=== PATIENT | male | born 1990 | race American Indian/Alaskan Native ===

== ENCOUNTER 2016-11-15 10:34 | Emergency (ER) | payer SELFPAY ==
[2016-11-15 11:40] LABS: Basophils % (Auto) 0.4 % (0.0-1.8); Eosinophils % (Auto) 0.6 % (0.0-4.3); Hemoglobin 13.4 gm/dl (11.8-15.2); Mean Corpuscular HGB Conc 34 % (32-34); Mean Corpuscular Hemoglobin 34 pg (28-32); Mean Corpuscular Volume 98 fl (84-94); Platelet Count 159 K/mm3 (140-440); Red Blood Count 3.96 M/mm3 (3.65-5.03); White Blood Count 4.1 K/mm3 (4.5-11.0)
[2016-11-15] MEDS ORDERED: KEPPRA 1,000 MG/NS 0.75% 100ML 1,000 MG/100 ML BAG IV ONE (11:59)
[2016-11-15 12:00] LABS: Alanine Aminotransferase 9 units/L (7-56); Albumin 4.2 g/dL (3.9-5); Albumin/Globulin Ratio 1.8 %; Alkaline Phosphatase 52 units/L (35-129); Anion Gap 17 mmol/L; BUN/Creatinine Ratio 12.72; Blood Urea Nitrogen 14 mg/dL (9-20); Calcium 9.2 mg/dL (8.4-10.2); Carbon Dioxide 25 mmol/L (22-30); Chloride 103.5 mmol/L (98-107); Glucose 80 mg/dL (75-100); Potassium 3.8 mmol/L (3.6-5.0); Sodium 142 mmol/L (137-145); Total Protein 6.6 g/dL (6.3-8.2)
--- NOTE | 2016-11-15 13:51 | Emergency Department Report ---
ED Seizure HPI - General Chief Complaint: Seizure Stated Complaint: SEIZURE Time Seen by Provider: 11/15/16 11:56 Source: EMS Mode of arrival: Stretcher Limitations: No Limitations - History of Present Illness Initial Comments: 26 yo male with a past medical history of seizures and kidney resection presents to Hospital status post seizure. Apparently patient had a seizure for 1 minute (witnessed by uncle). Pt was postictal upon EMS arrival but patient was A and 0 4 and able to ambulate when EMS brought the patient to the hospital. Initially patient was tachycardic and hypertensive upon EMS arrival but that has improved spontaneously. Patient states he suffered a mild tongue abrasion, no urinary incontinence, and has some moderate global headache was typical of a postseizure headache. Patient's been noncompliant with his seizure medication for greater than 4 months. Last medication he took with Keppra 500 twice a day. - Related Data Previous Rx's Medication Instructions Recorded Last Taken Type levETIRAcetam [Keppra TAB] 500 mg PO BID #60 tablet 11/15/16 Unknown Rx Allergies Allergy/AdvReac Type Severity Reaction Status Date / Time No Known Allergies Allergy Verified 07/12/15 19:56 ED Review of Systems ROS: Stated complaint: SEIZURE Other details as noted in HPI Comment: All other systems reviewed and negative Other: Constitutional: No fevers chills Eyes: No eye pain visual changes ENT: Tongue abrasion Neck: Denies pain Respiratory: Denies cough wheezing shortness of breath Cardiovascular: Denies chest pain, palpitations, syncope GI: Denies abdominal pain, nausea, vomiting : Denies dysuria Musculoskeletal: Denies back pain Skin: Denies rash, lesions, erythema Neurologic: Positive headache, no focal weakness or numbness Psychiatric: Denies suicidal ideation, hallucinations Hematological/lymphatic: Denies easy bruising, lymphadenopathy ED Past Medical Hx - Past Medical History Previous Medical History?: Yes Additional medical history: Epilepsy - Surgical History Past Surgical History?: Yes Additional Surgical History: Kidney removal - Social History Smoking Status: Never Smoker Substance Use Type: None - Medications Home Medications: Home Medications Medication Instructions Recorded Confirmed Last Taken Type levETIRAcetam [Keppra TAB] 500 mg PO BID #60 tablet 11/15/16 Unknown Rx ED Physical Exam - General Limitations: No Limitations - Other Other exam information: General: No limitations, patient is alert in no acute distress Head exam: Atraumatic, normocephalic Eyes exam: Normal appearance, pupils equal reactive to light, extraocular movements intact ENT: Moist mucous membrane, minimal superficial tongue abrasion to right lateral tongue Neck exam: Normal inspection, full range of motion, no meningismus nontender Respiratory exam: Clear to auscultation bilateral, no wheezes, rales, crackles Cardiovascular: Normal rate and rhythm, normal heart sounds Abdomen: Soft, nondistended, and nontender, with normal bowel sounds, no rebound, or guarding Extremity: Full range of motion normal inspection no deformity Back: Normal Inspection, full range of motion, no tenderness Neurologic: Alert, oriented x3, cranial nerves intact, no motor or sensory deficit Psychiatric: normal affect, normal mood Skin: Warm, dry, intact ED Course Vital Signs 11/15/16 11/15/16 11/15/16 10:51 10:55 10:56 Temperature 98.2 F Pulse Rate 87 80 Respiratory 19 17 18 Rate Blood Pressure 117/68 O2 Sat by Pulse 95 Oximetry 11/15/16 11/15/16 11/15/16 11:00 11:05 11:11 Temperature Pulse Rate 77 79 74 Respiratory 16 16 17 Rate Blood Pressure 109/67 109/67 109/67 O2 Sat by Pulse 94 94 95 Oximetry - Reevaluation(s) Reevaluation #1: 11/15/16 13:51 Patient Keppra 1 g, no further seizure activity ED Medical Decision Making - Lab Data Result diagrams: 11/15/16 11:29 11/15/16 11:29 Lab Results 11/15/16 11/15/16 Range/Units 11:29 11:29 WBC 4.1 L (4.5-11.0) K/mm3 RBC 3.96 (3.65-5.03) M/mm3 Hgb 13.4 (11.8-15.2) gm/dl Hct 39.0 (35.5-45.6) % MCV 98 H (84-94) fl MCH 34 H (28-32) pg MCHC 34 (32-34) % RDW 12.0 L (13.2-15.2) % Plt Count 159 (140-440) K/mm3 Lymph % (Auto) 20.7 (13.4-35.0) % [place] % (Auto) 9.3 H (0.0-7.3) % Eos % (Auto) 0.6 (0.0-4.3) % Baso % (Auto) 0.4 (0.0-1.8) % Lymph # 0.8 L (1.2-5.4) K/mm3 [place] # 0.4 (0.0-0.8) K/mm3 Eos # 0.0 (0.0-0.4) K/mm3 Baso # 0.0 (0.0-0.1) K/mm3 Seg Neutrophils % 69.0 (40.0-70.0) % Seg Neutrophils # 2.8 (1.8-7.7) K/mm3 Sodium 142 (137-145) mmol/L Potassium 3.8 (3.6-5.0) mmol/L Chloride 103.5 (98-107) mmol/L Carbon Dioxide 25 (22-30) mmol/L Anion Gap 17 mmol/L BUN 14 (9-20) mg/dL Creatinine 1.1 (0.8-1.5) mg/dL Estimated GFR > 60 ml/min BUN/Creatinine Ratio 12.72 % Glucose 80 (75-100) mg/dL Calcium 9.2 (8.4-10.2) mg/dL Total Bilirubin 0.60 (0.1-1.2) mg/dL AST 16 (5-40) units/L ALT 9 (7-56) units/L Alkaline Phosphatase 52 (35-129) units/L Total Protein 6.6 (6.3-8.2) g/dL Albumin 4.2 (3.9-5) g/dL Albumin/Globulin Ratio 1.8 % - Medical Decision Making Plan to discharge patient home. Seizures likely secondary to medication noncompliance. Refill of medication will be provided - Differential Diagnosis seizure, medication noncompliance, electrolyte adenopathy Critical Care Time: No Critical care attestation.: If time is entered above; I have spent that time in minutes in the direct care of this critically ill patient, excluding procedure time. ED Disposition Clinical Impression: Seizure, Noncompliance with medication regimen Disposition: TO HOME OR SELFCARE Is pt being admited?: No Does the pt Need Aspirin: No Condition: Stable Instructions: Epilepsy (ED) Additional Instructions: Take the medication as prescribed. Use the discount coupon card provided to make your medication more affordable. Return if symptoms worsen. Follow-up with neurology Prescriptions: levETIRAcetam [Keppra TAB] 500 mg PO BID #60 tablet Referrals: ERMIAS WATSON MD [Staff Physician] - 3-5 Days (Neurologist) TONY FRIEDMAN MD [Staff Physician] - 3-5 Days (Neurologist) [facility] [Provider Group] - 3-5 Days (Primary care clinic) Time of Disposition: 13:53
[2016-11-15 14:35] VITALS: BP 105/63
== END 2016-11-15 14:36 | disposition home or self-care (01) ==
LOC: ED 10:34
DX: R56.9 Unspecified convulsions (principal); Z91.14 Patient's other noncompliance with medication regimen; X58.XXXA Exposure to other specified factors, initial encounter; Y93.9 Activity, unspecified; Y92.9 Unspecified place or not applicable; Y99.9 Unspecified external cause status
CPT/HCPCS: 36415; 80053; 85025; 96365; 96366; 99284; J1953

== ENCOUNTER 2018-04-09 09:32 | Emergency (ER) | payer SELFPAY ==
[2018-04-09 10:27] LABS: Hematocrit 43.7 % (35.5-45.6); Hemoglobin 14.7 gm/dl (11.8-15.2); Mean Corpuscular HGB Conc 34 % (32-34); Mean Corpuscular Volume 101 fl (84-94); Platelet Count 165 K/mm3 (140-440); Red Blood Count 4.32 M/mm3 (3.65-5.03); Red Cell Distribution Width 12.5 % (13.2-15.2)
[2018-04-09 10:46] LABS: BUN/Creatinine Ratio 11; Blood Urea Nitrogen 12 mg/dL (9-20); Calcium 9.4 mg/dL (8.4-10.2); Hemolysis Index 47
[2018-04-09] MEDS ORDERED: TORADOL IV ONE (10:59)
[2018-04-09] MEDS ORDERED: KEPPRA 1,000 MG/NS 0.75% 100ML 1,000 MG/100 ML BAG IV ONE (10:59)
--- NOTE | 2018-04-09 10:59 | Emergency Department Report ---
ED Seizure HPI - General Chief Complaint: Seizure Stated Complaint: SEIZURES Time Seen by Provider: 04/09/18 10:04 Source: patient, EMS (ems notes not available at time of chart dictation), RN notes reviewed, old records reviewed Mode of arrival: Stretcher Limitations: No Limitations - History of Present Illness Initial Comments: This is a 27-year-old gentleman who is not known to this provider previously. He reports a history of epilepsy, seizures, and reports medication noncompliance. Patient in the past has been on Keppra, 500 mg, twice daily. Reports noncompliance with medications secondary to physical issues. Last had a seizure 6 months ago. Patient reports that he was at home, and bed, and had a seizure. He did not fall or hit his head. He reports that his uncle, who was at the house, indicated that there was no trauma. He complains of a mild headache. Otherwise, he denies complaints. He specifically denies neck pain, sore throat, chest pain, abdominal pain, urinary symptoms, vomiting. His headache is throbbing, not sudden or thunderclap in nature, not maximal in intensity, is not the most intense headache of his life. MD Complaint: seizure -: Sudden Description of Episode: loss of consciousness, tonic-clonic movement Witnessed:: Yes Trauma: No Seizure History: known seizure disorder, history of non-compliance Place: home Possible Precipitating Event: other (medication noncompliance) Associated Symptoms: other (headaches, otherwise, denies other symptoms) - Related Data Previous Rx's Medication Instructions Recorded Last Taken Type levETIRAcetam [Keppra TAB] 500 mg PO BID #60 tablet 04/09/18 Unknown Rx Allergies Allergy/AdvReac Type Severity Reaction Status Date / Time No Known Allergies Allergy Verified 07/12/15 19:56 ED Review of Systems ROS: Stated complaint: SEIZURES Other details as noted in HPI Constitutional: malaise. denies: fever Eyes: denies: eye discharge, vision change ENT: denies: epistaxis Respiratory: denies: cough Cardiovascular: denies: chest pain Gastrointestinal: denies: abdominal pain, nausea, vomiting Genitourinary: denies: urgency, dysuria Musculoskeletal: denies: back pain Skin: denies: lesions Neurological: headache. denies: weakness Psychiatric: denies: anxiety ED Past Medical Hx - Past Medical History Previous Medical History?: Yes Hx Seizures: Yes Additional medical history: Epilepsy - Surgical History Past Surgical History?: Yes Additional Surgical History: Kidney removal - Social History Smoking Status: Current Every Day Smoker Substance Use Type: Alcohol, Marijuana - Medications Home Medications: Home Medications Medication Instructions Recorded Confirmed Last Taken Type levETIRAcetam [Keppra TAB] 500 mg PO BID #60 tablet 04/09/18 Unknown Rx ED Physical Exam - General Limitations: No Limitations General appearance: alert, in no apparent distress - Head Head exam: Present: atraumatic, normocephalic - Eye Eye exam: Present: normal appearance, PERRL, EOMI, other (visual acuity intact to finger counting, color perception, reading at a close distance). Absent: nystagmus - ENT ENT exam: Present: normal exam, normal orophraynx, mucous membranes moist, normal external ear exam - Neck Neck exam: Present: normal inspection, full ROM. Absent: tenderness, meningismus - Respiratory Respiratory exam: Present: normal lung sounds bilaterally. Absent: respiratory distress - Cardiovascular Cardiovascular Exam: Present: regular rate, normal rhythm, normal heart sounds. Absent: bradycardia, tachycardia, irregular rhythm, systolic murmur, diastolic murmur, rubs, gallop - GI/Abdominal GI/Abdominal exam: Present: soft. Absent: distended, tenderness, guarding, r ebound, rigid, pulsatile mass - Rectal Rectal exam: Present: deferred - Extremities Exam Extremities exam: Present: normal inspection, full ROM, other (2+ pulses noted in the bilateral upper, lower extremities. Compartments soft. No long bony tenderness. The pelvis is stable.). Absent: pedal edema, joint swelling, calf tenderness - Back Exam Back exam: Present: normal inspection, full ROM. Absent: tenderness, CVA tenderness (R), paraspinal tenderness, vertebral tenderness - Neurological Exam Neurological exam: Present: alert, oriented X3, CN II-XII intact, normal gait, other (Extraocular movements intact. Tongue midline. No facial droop. Facial sensation intact to light touch in the V1, V2, V3 distribution bilaterally. 5 and 5 strength in 4 extremities.. Sensation is intact to light touch in 4 extremities.). Absent: motor sensory deficit - Psychiatric Psychiatric exam: Present: anxious - Skin Skin exam: Present: warm, dry, intact, normal color. Absent: rash ED Course Vital Signs 04/09/18 04/09/18 04/09/18 09:45 10:00 10:16 Temperature 98.0 F Pulse Rate 108 H 84 91 H Respiratory 15 16 21 Rate Blood Pressure 135/71 125/83 128/81 Blood Pressure 135/71 [Left] O2 Sat by Pulse 98 Oximetry 04/09/18 04/09/18 04/09/18 10:30 10:46 11:40 Temperature Pulse Rate 81 83 Respiratory 16 13 15 Rate Blood Pressure 122/76 111/70 Blood Pressure [Left] O2 Sat by Pulse 99 Oximetry ED Medical Decision Making - Lab Data Result diagrams: 04/09/18 10:11 04/09/18 10:11 Vital Signs 04/09/18 04/09/18 04/09/18 09:45 10:00 10:16 Temperature 98.0 F Pulse Rate 108 H 84 91 H Respiratory 15 16 21 Rate Blood Pressure 135/71 125/83 128/81 Blood Pressure 135/71 [Left] O2 Sat by Pulse 98 Oximetry 04/09/18 04/09/18 04/09/18 10:30 10:46 11:40 Temperature Pulse Rate 81 83 Respiratory 16 13 15 Rate Blood Pressure 122/76 111/70 Blood Pressure [Left] O2 Sat by Pulse 99 Oximetry Lab Results 04/09/18 04/09/18 04/09/18 Range/Units 10:11 10:11 10:14 WBC 5.3 (4.5-11.0) K/mm3 RBC 4.32 (3.65-5.03) M/mm3 Hgb 14.7 (11.8-15.2) gm/dl Hct 43.7 (35.5-45.6) % MCV 101 H (84-94) fl MCH 34 H (28-32) pg MCHC 34 (32-34) % RDW 12.5 L (13.2-15.2) % Plt Count 165 (140-440) K/mm3 Sodium 138 (137-145) mmol/L Potassium 4.8 (3.6-5.0) mmol/L Chloride 101.6 (98-107) mmol/L Carbon Dioxide 19 L (22-30) mmol/L Anion Gap 22 mmol/L BUN 12 (9-20) mg/dL Creatinine 1.1 (0.8-1.5) mg/dL Estimated GFR > 60 ml/min BUN/Creatinine Ratio 11 % Glucose 81 (75-100) mg/dL POC Glucose 69 L (70-105) Calcium 9.4 (8.4-10.2) mg/dL 04/09/18 Range/Units 11:45 WBC (4.5-11.0) K/mm3 RBC (3.65-5.03) M/mm3 Hgb (11.8-15.2) gm/dl Hct (35.5-45.6) % MCV (84-94) fl MCH (28-32) pg MCHC (32-34) % RDW (13.2-15.2) % Plt Count (140-440) K/mm3 Sodium (137-145) mmol/L Potassium (3.6-5.0) mmol/L Chloride (98-107) mmol/L Carbon Dioxide (22-30) mmol/L Anion Gap mmol/L BUN (9-20) mg/dL Creatinine (0.8-1.5) mg/dL Estimated GFR ml/min BUN/Creatinine Ratio % Glucose (75-100) mg/dL POC Glucose 359 H (70-105) Calcium (8.4-10.2) mg/dL - Medical Decision Making Differential diagnosis, including but not limited to: Breakthrough seizure secondary to medication noncompliance, migraine, tension headache, cluster headache, hypoglycemia, now resolved Assessment and plan: 27-year-old gentleman with breakthrough seizure, most likely in the context of medication noncompliance. Accu-Chek initially 69, patient given food and dextrose, repeat Accu-Chek greater than 350. Patient currently has a Neville Coma Scale of 15, with an NIH score of 0. He was counseled to not drive or operate motor vehicles for the next 6 months, he was given a prescription refill for his Keppra medication, and he was given instructions on how to download the good RX application on his Smart phone device, and he was instructed on how to find affordable prescriptions. He reports no history of diabetes, and is reliable to go home, with instructions to eat continuing meals throughout the day. He was also given an affordable prescription card. Return precautions have been reviewed. Critical care attestation.: If time is entered above; I have spent that time in minutes in the direct care of this critically ill patient, excluding procedure time. ED Disposition Clinical Impression: History of seizure, Medication refill Disposition: DC-01 TO HOME OR SELFCARE Is pt being admited?: No Does the pt Need Aspirin: No Condition: Stable Instructions: Recurrent Seizures Adult (ED) Additional Instructions: Do not drive or operate motor vehicles for the next 6 months. Take the seizure medication as directed. Noncompliance with seizure medications may result in breakthrough seizures, which in turn may result in disability, paralysis, loss of quality of life. Make certain to eat 3-6 meals per day, and follow up with any of the listed neurology specialists or primary care doctors within the next 14 days. Use the Smart phone application, [employer], as we discussed, in conjunction with [employer] prescription card. Return to the emergency room right away with you, worsens or different symptoms. Referrals: JADA PATTEN MD [Referring] - 7-10 days ERMIAS WATSON MD [Staff Physician] - 7-10 days TONY FRIEDMAN MD [Staff Physician] - 7-10 days [facility] [Provider Group] - 7-10 days
[2018-04-09] MEDS ORDERED: D50W (25GM) Syringe IV ONE (12:00)
[2018-04-09 12:30] VITALS: BP 110/71
== END 2018-04-09 11:51 | disposition home or self-care (01) ==
LOC: ED 09:32
DX: G40.909 Epilepsy, unspecified, not intractable, without status epilepticus (principal); F17.200 Nicotine dependence, unspecified, uncomplicated; F12.10 Cannabis abuse, uncomplicated; Z76.0 Encounter for issue of repeat prescription
CPT/HCPCS: 36415; 80048; 82962; 85027; 96374; 96375; 99284; J1885; J1953

== ENCOUNTER 2019-01-10 10:28 | Emergency (ER) | payer SELFPAY ==
[2019-01-10] MEDS ORDERED: levETIRAcetam 1000 MG/NS 0.75% 1,000 MG/100 ML BAG IV ONE (11:00)
--- NOTE | 2019-01-10 11:04 | Emergency Department Report ---
HPI - General Chief Complaint: Seizure Time Seen by Provider: 01/10/19 10:50 - HPI HPI: 28-year-old male presents to the emergency department via EMS after he had a witnessed seizure while at the [facility]. The patient does have a seizure history for which she is prescribed 500 mg of Keppra to be taken twice daily. The patient says that he has been taking 250 mg twice daily due to the high cost of the antiepileptic medication. Currently he is awake, alert, oriented and just has the complaint of some mild headache. No vision change, slurred speech or any other neurological deficits. He says it has been a few months since he last had a seizure, prior to today. He does not have a primary care physician or neurologist. ED Past Medical Hx - Past Medical History Previous Medical History?: Yes Hx Seizures: Yes Additional medical history: Epilepsy - Surgical History Past Surgical History?: Yes Additional Surgical History: Kidney removal - Social History Smoking Status: Current Every Day Smoker Substance Use Type: Alcohol - Medications Home Medications: Home Medications Medication Instructions Recorded Confirmed Last Taken Type levETIRAcetam [Keppra TAB] 500 mg PO BID #60 tablet 01/10/19 Unknown Rx ED Review of Systems ROS: Stated complaint: SEIZURE Other details as noted in HPI Comment: All other systems reviewed and negative Constitutional: denies: chills, fever Eyes: denies: eye pain, vision change Respiratory: denies: cough, shortness of breath Cardiovascular: denies: chest pain, palpitations Gastrointestinal: denies: abdominal pain, vomiting Musculoskeletal: denies: back pain, arthralgia Neurological: headache, other (seizure) Physical Exam - Physical Exam Vital Signs: Vital Signs 01/10/19 01/10/19 10:39 10:44 Temperature 98.1 F 98.1 F Pulse Rate 80 80 Respiratory 18 18 Rate Blood Pressure 124/69 Blood Pressure 124/69 [Left] O2 Sat by Pulse 99 99 Oximetry Physical Exam: GENERAL: The patient is well-developed well-nourished. HENT: Normocephalic. Atraumatic. Patient has moist mucous membranes. EYES: Extraocular motions are intact. Pupils equal reactive to light bilaterally. No nystagmus. NECK: Supple. Trachea is midline. CHEST/LUNGS: Clear to auscultation. There is no respiratory distress noted. HEART/CARDIOVASCULAR: Regular. There is no tachycardia. There is no murmur. ABDOMEN: Abdomen is soft, nontender. Patient has normal bowel sounds. There is no abdominal distention. SKIN: Skin is warm and dry. NEURO: The patient is awake, alert, and oriented. The patient is cooperative. The patient has no focal neurologic deficits. Normal speech. Cranial nerves II through XII grossly intact. MUSCULOSKELETAL: There is no tenderness or deformity. There is no evidence of acute injury. ED Course Vital Signs 01/10/19 01/10/19 10:39 10:44 Temperature 98.1 F 98.1 F Pulse Rate 80 80 Respiratory 18 18 Rate Blood Pressure 124/69 Blood Pressure 124/69 [Left] O2 Sat by Pulse 99 99 Oximetry ED Medical Decision Making - Lab Data Result diagrams: 01/10/19 11:05 01/10/19 11:05 - Medical Decision Making This patient presents after having a witnessed seizure at the [facility] prior to presentation. The patient admits to decreasing his normal antiepileptic medication by half to try and make last for financial reasons. Since the patie nt has been in the emergency department he has been awake, alert, oriented. No focal, motor or sensory deficits and his cranial nerves are intact. His labs have been unremarkable. His vital signs stable throughout his ED course. The patient has been reevaluated multiple times over more than 4 hours in the emergency department. Given that the patient has a seizure history, this medication noncompliance, and is without any deficits, I did not feel that any advanced CT imaging of the head was necessary at this time. He appears safe for home. He has been given a prescription for his Keppra, a good Rx card and a referral for neurology. He has been instructed to return to the emergency dep artment with any further seizure-like activity, worsening of symptoms, or with any acute distress. - Differential Diagnosis medication noncompliance, epilepsy, hypoglycemia Critical Care Time: No Critical care attestation.: If time is entered above; I have spent that time in minutes in the direct care of this critically ill patient, excluding procedure time. ED Disposition Clinical Impression: Seizure disorder Disposition: DC-01 TO HOME OR SELFCARE Is pt being admited?: No Condition: Stable Instructions: Epilepsy (ED) Additional Instructions: Please take your seizure medication as prescribed. Follow-up with a primary care physician. I am giving you a referral for a local neurologist, Dr. Patten, to follow up regarding your seizure history. Return to the emergency Department with any worsening of your symptoms or any acute distress. Please avoid any alcohol or illicit drugs, as these can decrease your seizure threshold. You should not be driving a car or operating any heavy machinery for at least 6 months or until cleared by a neurologist. Prescriptions: levETIRAcetam [Keppra TAB] 500 mg PO BID #60 tablet Referrals: JADA PATTEN MD [Referring] - 2-3 Days Time of Disposition: 14:25
[2019-01-10 13:10] LABS: Alanine Aminotransferase 8 units/L (7-56); Albumin 4.3 g/dL (3.9-5); BUN/Creatinine Ratio 9; Blood Urea Nitrogen 11 mg/dL (9-20); Calcium 9.3 mg/dL (8.4-10.2); Hemolysis Index 53
[2019-01-10 13:38] LABS: Basophils % (Auto) 0.5 % (0.0-1.8); Eosinophils % (Auto) 0.8 % (0.0-4.3); Hematocrit 40.1 % (35.5-45.6); Hemoglobin 13.3 gm/dl (11.8-15.2); Lymphocytes # (Auto) 0.8 K/mm3 (1.2-5.4); Lymphocytes % (Auto) 15.1 % (13.4-35.0); Mean Corpuscular HGB Conc 33 % (32-34); Mean Corpuscular Volume 102 fl (84-94); Monocytes # (Auto) 0.5 K/mm3 (0.0-0.8); Monocytes % (Auto) 9.5 % (0.0-7.3); Platelet Count 149 K/mm3 (140-440); Red Blood Count 3.92 M/mm3 (3.65-5.03); Red Cell Distribution Width 12.6 % (13.2-15.2)
[2019-01-10 14:47] VITALS: BP 142/99
== END 2019-01-10 14:47 | disposition home or self-care (01) ==
LOC: ED 10:28
DX: G40.909 Epilepsy, unspecified, not intractable, without status epilepticus (principal); F17.200 Nicotine dependence, unspecified, uncomplicated
CPT/HCPCS: 36415; 80053; 82550; 85025; 96374; 99284; J1953